=== PATIENT | male | born 1990 | race Hispanic/Latino ===

== ENCOUNTER 2021-08-02 05:36 | Observation (INO) | payer BC, SELFPAY ==
[2021-08-02 06:24] LABS: #Lymphocytes 0.9 thou/uL (1.20-3.40); #Monocytes 0.4 thou/uL (0.11-0.59); #Neutrophils 6.6 thou/uL (1.40-6.50); %Basophils 0.1 % (0.0-1.0); %Eosinophils 0.3 % (0.0-10.0); %Lymphocytes 11.3 % (21.0-51.0); %Monocytes 4.5 % (0.0-10.0); %Neutrophils 83.9 % (42.0-75.0); Hemoglobin 15.6 g/dL (14.0-18.0); Mean Corpuscular HGB CONC 34.7 g/dL (32.0-36.0); Mean Corpuscular Hemoglobin 28.1 pg (27.0-31.0); Mean Platelet Volume 7.7 fL (7.4-10.4); Platelet Count 288 thou/uL (130-400); RBC Distribution Width 12.1 % (11.5-14.5); Red Blood Cell (RBC) Count 5.57 mill/uL (4.70-6.10); White Blood Cell (WBC) Count 7.9 thou/uL (4.8-10.8)
[2021-08-02 07:00] LABS: ALT (SGPT) 19 U/L (8-55); AST (SGOT) 8 U/L (5-34); Albumin 4.3 g/dL (3.5-5.0); Alkaline Phosphatase 165 U/L (40-110); Anion Gap 12 mmol/L (10-20); BUN (Urea Nitrogen) 8 mg/dL (8.9-20.6); Bilirubin, Total 0.3 mg/dL (0.2-1.2); Calc. Creatinine Clearance 0 mL/min (70-130); Calcium 9.7 mg/dL (7.8-10.44); Carbon Dioxide 21 mmol/L (22-29); Chloride 105 mmol/L (98-107); Globulin 3.6 g/dL (2.4-3.5); Glucose 306 mg/dL (70-105); Protein, Total 7.9 g/dL (6.0-8.3); Sodium 136 mmol/L (136-145)
[2021-08-02 07:11] LABS: Potassium 2.4 mmol/L (3.5-5.1)
[2021-08-02] MEDS ORDERED: Potassium Chloride 20 MEQ TAB ONE (07:31)
[2021-08-02 07:37] LABS: Bilirubin Negative (Negative); Blood, Urine Negative (Negative); Glucose, Urine (Dipstick) >=1000 mg/dL (Negative); Ketone, Urine Negative (Negative); Leukocyte Negative (Negative); Nitrite Negative (Negative); Protein, Urine (Dipstick) Negative (Neg-Trace); Urobilinogen 0.2 mg/dL (Less than 2)
[2021-08-02 07:41] LABS: CK (CPK) 42 U/L (30-200); Magnesium 1.6 mg/dL (1.6-2.6)
[2021-08-02 07:42] LABS: Clarity Clear (Clear)
[2021-08-02] MEDS ORDERED: Potassium Chloride 40 MEQ in Premix Bag 1 BAG IVPB SCH (08:30)
[2021-08-02 09:00] LABS: Hemoglobin A1c 6.1 % (4.0-6.0)
[2021-08-02 09:12] LABS: Anion Gap 12 mmol/L (10-20); BUN (Urea Nitrogen) 8 mg/dL (8.9-20.6); Calc. Creatinine Clearance 0 mL/min (70-130); Calcium 9.3 mg/dL (7.8-10.44); Carbon Dioxide 22 mmol/L (22-29); Cardiac Risk 5.7 (Less than 4.5); Chloride 108 mmol/L (98-107); Cholesterol 171 mg/dl (< 200 Desired); Glucose 217 mg/dL (70-105); HDL Cholesterol 30 mg/dL (>60 Neg Risk); LDL Cholesterol, Calculated 118 mg/dL; Magnesium 1.6 mg/dL (1.6-2.6); Sodium 139 mmol/L (136-145); Triglycerides 117 mg/dL (Less than 150)
[2021-08-02 09:16] LABS: Phosphorus 1.7 mg/dL (2.3-4.7); Potassium 2.9 mmol/L (3.5-5.1)
[2021-08-02] MEDS ORDERED: Magnesium 2 GM/50 ML(in water) 2 GM in Premix Bag 1 BAG IVPB SCH (09:30)
[2021-08-02] MEDS ORDERED: Ondansetron PF 4 MG/2 ML Vial IVP PRN (09:31)
[2021-08-02] MEDS ORDERED: Acetaminophen 325 MG TAB PO PRN (09:31)
[2021-08-02] MEDS ORDERED: Calcium Carbonate 500 MG ChewTAB PO PRN (09:31)
[2021-08-02] MEDS ORDERED: Labetalol HCl 100 MG/20 ML VIAL SLOW IVP PRN (09:31)
[2021-08-02] MEDS ORDERED: Bisacodyl 5 MG TAB PO PRN (09:31)
[2021-08-02] MEDS ORDERED: Senokot S 8.6-50 MG TAB PO PRN (09:31)
[2021-08-02] MEDS ORDERED: Artificial Tear Sol 15 ML BOT EA EYE PRN (09:31)
[2021-08-02] MEDS ORDERED: Dextrose 50% Abboject 50 ML SYRINGE SLOW IVP PRN (09:31)
[2021-08-02] MEDS ORDERED: Dextrose 5% in Water 1,000 ML IV PRN (09:31)
[2021-08-02] MEDS ORDERED: hydrALAZINE 20 MG/ML VIAL SLOW IVP PRN (09:31)
[2021-08-02] MEDS ORDERED: Ondansetron ODT 4 MG TAB PO PRN (09:31)
[2021-08-02] MEDS ORDERED: GUAIFENESIN SF SOLN 200 MG/10 ML UDCUP PO PRN (09:31)
[2021-08-02] MEDS ORDERED: HumaLOG 300 UNITS/3 ML VIAL SC PRN ×2 (09:31→09:42)
[2021-08-02] MEDS ORDERED: Acetaminophen 650 MG Suppository PR PRN (09:31)
[2021-08-02] MEDS ORDERED: Loratadine 10 MG TAB PO PRN (09:31)
[2021-08-02] MEDS ORDERED: Sodium Chloride 0.65% Nasal 44 ML BOT EA NARE PRN (09:31)
[2021-08-02] MEDS ORDERED: Enoxaparin Sodium 40 MG/0.4 ML SYRINGE SC SCH (09:45)
[2021-08-02] MEDS ORDERED: Magnevist 469MG/ML 20 ML VIAL ONE (09:59)
[2021-08-02 10:12] VITALS: BMI 41.8
[2021-08-02 11:16] LABS: SARS-CoV-2 NAA Rapid Test Not Detected (NotDetected)
[2021-08-02] MEDS ORDERED: Potassium Chloride 20 MEQ in Premix Bag 1 BAG IVPB SCH (11:45)
[2021-08-02] MEDS ORDERED: Potassium Phosphate 15 MMOL in Sodium Chloride 0.9% 250 ML 250 ML IVPB SCH ×2 (12:00→16:00)
[2021-08-02 12:05] LABS: Anion Gap 12 mmol/L (10-20); BUN (Urea Nitrogen) 10 mg/dL (8.9-20.6); CK (CPK) 49 U/L (30-200); Calc. Creatinine Clearance 325 mL/min (70-130); Calcium 9.5 mg/dL (7.8-10.44); Carbon Dioxide 22 mmol/L (22-29); Chloride 107 mmol/L (98-107); Glucose 200 mg/dL (70-105); Potassium 4.6 mmol/L (3.5-5.1); Sodium 136 mmol/L (136-145)
[2021-08-02 12:12] LABS: Free T4 (Free Thyroxine) 1.61 ng/dL (0.70-1.48)
[2021-08-02] MEDS ORDERED: Potassium Chloride 20 MEQ TAB PO SCH (13:30)
[2021-08-02 18:42] LABS: Anion Gap 12 mmol/L (10-20); BUN (Urea Nitrogen) 10 mg/dL (8.9-20.6); Calc. Creatinine Clearance 291 mL/min (70-130); Calcium 9.7 mg/dL (7.8-10.44); Carbon Dioxide 23 mmol/L (22-29); Chloride 105 mmol/L (98-107); Glucose 204 mg/dL (70-105); Potassium 4.4 mmol/L (3.5-5.1); Sodium 136 mmol/L (136-145)
[2021-08-03 05:45] LABS: Anion Gap 11 mmol/L (10-20); BUN (Urea Nitrogen) 10 mg/dL (8.9-20.6); Calc. Creatinine Clearance 330 mL/min (70-130); Calcium 9.2 mg/dL (7.8-10.44); Carbon Dioxide 25 mmol/L (22-29); Chloride 105 mmol/L (98-107); Glucose 193 mg/dL (70-105); Magnesium 1.8 mg/dL (1.6-2.6); Phosphorus 3.6 mg/dL (2.3-4.7); Potassium 4.1 mmol/L (3.5-5.1); Sodium 137 mmol/L (136-145)
[2021-08-03 07:33] VITALS: BP 138/61; TEMP 97.9
[2021-08-03] MEDS ORDERED: Enoxaparin Sodium 40 MG/0.4 ML SYRINGE SC SCH (09:00)
== END 2021-08-03 09:52 | disposition home or self-care (01) ==
LOC: ERS 05:36 → 2SW 08:11
PROVIDERS: ADMIT Family Medicine; ATTEND Family Medicine
DX: R53.1 Weakness (principal); E87.6 Hypokalemia; E78.5 Hyperlipidemia, unspecified; E11.65 Type 2 diabetes mellitus with hyperglycemia; M47.816 Spondylosis without myelopathy or radiculopathy, lumbar region; M51.36 Other intervertebral disc degeneration, lumbar region; M48.061 Spinal stenosis, lumbar region without neurogenic claudication; M47.817 Spondylosis without myelopathy or radiculopathy, lumbosacral region; M48.07 Spinal stenosis, lumbosacral region; Z20.822 Contact with and (suspected) exposure to COVID-19
CPT/HCPCS: 36415; 36416; 70450; 72131; 72158; 80048; 80053; 80061; 81003; 82550; 83036; 83735; 84100; 84133; 84439; 84443; 84481; 85025; 85652; 86140; 87086; 93005; 96360; 96361; 96365; 96372; A9579; G0378; J1650; J3475; J3480; J7050

== ENCOUNTER 2024-10-04 22:24 | Emergency (ER) | payer BC ==
[2024-10-04] MEDS ORDERED: Dexamethasone 10 MG/ML VIAL ONE (23:35)
[2024-10-04] MEDS ORDERED: Amoxicillin/Potassium Clav 875 MG TAB ONE (23:35)
[2024-10-04] MEDS ORDERED: Ketorolac Tromethamine 30 MG (1 mL) VIAL ONE (23:37)
[2024-10-04] MEDS ORDERED: Acetaminophen 325 MG TAB ONE (23:38)
== END 2024-10-04 23:55 | disposition home or self-care (01) ==
LOC: ERS 22:24
DX: H66.91 Otitis media, unspecified, right ear (principal); Z87.891 Personal history of nicotine dependence
CPT/HCPCS: 96372; 99282; J1100; J1885